=== PATIENT | female | born 1985 | race Caucasian/White ===

== ENCOUNTER 2016-12-26 23:43 | Emergency (ER) | payer MEDICAID ==
[~2016-12-26] VITALS: Ht 157.5 cm; Wt 59.9 kg
[2016-12-27] MEDS ORDERED: KETOROLAC 30 MG/1 ML IM ONE
[2016-12-27] MEDS ORDERED: KETOROLAC 30 MG/1 ML ONE (00:04)
[2016-12-27 01:44] VITALS: BP 118/80
== END 2016-12-27 01:57 | disposition home or self-care (01) ==
LOC: ED 23:59
DX: G89.11 Acute pain due to trauma (principal); Y04.0XXA Assault by unarmed brawl or fight, initial encounter; Y93.89 Activity, other specified; Y92.009 Unspecified place in unspecified non-institutional (private) residence as the place of occurrence of the external cause; Y99.9 Unspecified external cause status
CPT/HCPCS: 70100; 96372; 99284; J1885

== ENCOUNTER 2017-02-17 02:33 | Emergency (ER) | payer MEDICAID ==
[~2017-02-17] VITALS: Ht 157.5 cm; Wt 55.0 kg
[2017-02-17 02:57] VITALS: BP 132/85
[2017-02-17] MEDS ORDERED: LORazepam 1MG TABLET ONE (03:07)
[2017-02-17] MEDS ORDERED: ONDANSETRON ODT 4 MG ONE (03:08)
[2017-02-17] MEDS ORDERED: HYDROcodone/APAP 5/325 TABLET ONE (03:08)
[2017-02-17] MEDS ORDERED: LORazepam 1MG TABLET PO ONE (03:30)
[2017-02-17] MEDS ORDERED: HYDROcodone/APAP 5/325 TABLET PO ONE (03:30)
[2017-02-17] MEDS ORDERED: ONDANSETRON ODT 4 MG PO ONE (03:30)
== END 2017-02-17 04:24 | disposition home or self-care (01) ==
LOC: ED 03:15
DX: S50.01XA Contusion of right elbow, initial encounter (principal); S50.11XA Contusion of right forearm, initial encounter; S40.022A Contusion of left upper arm, initial encounter; W19.XXXA Unspecified fall, initial encounter; Y93.89 Activity, other specified; Y92.009 Unspecified place in unspecified non-institutional (private) residence as the place of occurrence of the external cause; Y99.8 Other external cause status
CPT/HCPCS: 73000; 73060; 73080; 73090; 99284; Q0162

== ENCOUNTER 2017-06-06 14:05 | Emergency (ER) | payer MEDICAID ==
[~2017-06-06] VITALS: Ht 157.5 cm; Wt 55.0 kg
[2017-06-06] MEDS ORDERED: KETOROLAC 30 MG/1 ML ONE (15:50)
[2017-06-06] MEDS ORDERED: OXYcodone/APAP 5/325MG TABLET ONE (15:50)
[2017-06-06 16:12] LABS: HCG UR LOT HCG706132
[2017-06-06 16:17] LABS: HCG UR OBC PASS
[2017-06-06 17:17] VITALS: BP 122/65
== END 2017-06-06 17:20 | disposition home or self-care (01) ==
LOC: ED 17:12
DX: M54.5 Low back pain (principal)
CPT/HCPCS: 72110; 81003; 81025; 99285

== ENCOUNTER 2017-07-24 10:44 | Emergency (ER) | payer MEDICAID ==
[~2017-07-24] VITALS: Ht 157.5 cm; Wt 60.0 kg
[2017-07-24 10:57] VITALS: BP 118/72
[2017-07-24] MEDS ORDERED: CYCL7.5T25 PO (10:59)
== END 2017-07-24 12:25 | disposition home or self-care (01) ==
LOC: ED 12:19
DX: G89.29 Other chronic pain (principal); M79.672 Pain in left foot; M72.2 Plantar fascial fibromatosis; F17.200 Nicotine dependence, unspecified, uncomplicated
CPT/HCPCS: 99284

== ENCOUNTER 2017-08-10 14:29 | Emergency (ER) | payer MEDICAID ==
[~2017-08-10] VITALS: Ht 157.5 cm; Wt 59.1 kg
[~2017-08-10 14:29] MED LIST: CYCL7.5T25 PO
[2017-08-10] MEDS ORDERED: ONDANSETRON ODT 4 MG ONE (15:44)
[2017-08-10] MEDS ORDERED: KETOROLAC 30 MG/1 ML ONE (15:44)
[2017-08-10] MEDS ORDERED: HYDROcodone/APAP 5/325 TABLET PO PRN (16:00)
[2017-08-10] MEDS ORDERED: ONDANSETRON ODT 4 MG PO ONE (16:00)
[2017-08-10] MEDS ORDERED: KETOROLAC 30 MG/1 ML IM ONE (16:00)
[2017-08-10] MEDS ORDERED: HYDROcodone/APAP 5/325 TABLET ONE (16:08)
[2017-08-10 16:17] LABS: BASOPHILS # (AUTO) 0.05 x10^3/uL (0-0.1); BASOPHILS % (AUTO) 1 % (0-1); EOSINOPHILS # (AUTO) 0.12 x10^3/uL (0-0.4); EOSINOPHILS % (AUTO) 1 % (1-7); LYMPHOCYTES # (AUTO) 2.32 x10^3/uL (1-3.4); LYMPHOCYTES % (AUTO) 21 % (22-44); MD NO; MEAN CORPUSCULAR HEMOGLOBIN 30.9 pg (27.0-34.8); MEAN CORPUSCULAR HGB CONC 34.1 g/dL (32.4-35.8); MEAN CORPUSCULAR VOLUME 90.6 fL (80-100); MEAN PLATELET VOLUME 7.4 fL (7.4-10.4); MONOCYTES # (AUTO) 0.66 x10^3/uL (0.2-0.8); MONOCYTES % (AUTO) 6 % (2-9); NEUTROPHILS # (AUTO) 7.94 x10^3/uL (1.8-6.8); NEUTROPHILS % (AUTO) 72 % (42-75); PLATELET COUNT 266 x10^3/uL (130-400); RED BLOOD COUNT 4.43 x10^6/uL (3.82-5.3); RED CELL DISTRIBUTION WIDTH 12.5 % (9.6-15.2)
[2017-08-10 16:27] LABS: ALANINE AMINOTRANSFERASE 25 U/L (12-78); ALBUMIN 3.7 g/dL (3.4-5.0); ANION GAP 9 mmol/L (5-15); CALCIUM 8.2 mg/dL (8.5-10.1); CHLORIDE 108 mmol/L (98-107); CREATININE 0.84 mg/dL (0.55-1.02)
[2017-08-10 16:31] LABS: ALKALINE PHOSPHATASE 55 U/L (45-117); BILIRUBIN,TOTAL 0.4 mg/dL (0.2-1.0); SALICYLATE LEVEL 2.1 mg/dL (2.8-20.0); TOTAL PROTEIN 7.8 g/dL (6.4-8.2)
[2017-08-10 16:32] LABS: ACETAMINOPHEN < 2 mcg/mL (10-30)
[2017-08-10 17:22] VITALS: BP 112/64
[2017-08-10 18:15] LABS: AMPHETAMINE SCREEN, URINE Negative (Negative); BARBITURATE SCREEN, URINE Negative (Negative); BENZODIAZEPINE SCREEN, URINE Negative (Negative); CANNABINOID SCREEN, URINE Negative (Negative); COCAINE SCREEN, URINE Negative (Negative); METHADONE SCREEN, URINE Negative (Negative); OPIATE SCREEN, URINE Negative (Negative)
[2017-08-10 18:27] LABS: ACETAMINOPHEN < 2 mcg/mL (10-30); SALICYLATE LEVEL 2.1 mg/dL (2.8-20.0)
[2017-08-10] MEDS ORDERED: IBUPROFEN 200 MG TABLET ONE (20:57)
[2017-08-10] MEDS ORDERED: IBUPROFEN 200 MG TABLET PO ONE (21:00)
== END 2017-08-10 22:52 | disposition home or self-care (01) ==
LOC: ED 18:37
DX: G89.11 Acute pain due to trauma (principal); M25.561 Pain in right knee; F32.9 Major depressive disorder, single episode, unspecified; F17.210 Nicotine dependence, cigarettes, uncomplicated; Z91.012 Allergy to eggs; Z79.899 Other long term (current) drug therapy; X58.XXXA Exposure to other specified factors, initial encounter; Y93.89 Activity, other specified; Y92.89 Other specified places as the place of occurrence of the external cause
CPT/HCPCS: 29505; 36415; 73564; 80053; 80307; 80329; 84703; 85025; 96372; 99285; J1885; Q0162; G0480

== ENCOUNTER 2017-11-26 16:04 | Emergency (ER) | payer MEDICAID ==
[~2017-11-26] VITALS: Ht 157.5 cm; Wt 68.0 kg
[2017-11-26 16:08] VITALS: BP 115/74
[2017-11-26] MEDS ORDERED: ALBUTEROL/IPRATROPIUM 2.5MG/0.5MG, 3 ML NPPB ONE (16:30)
[2017-11-26] MEDS ORDERED: ALBUTEROL/IPRATROPIUM 2.5MG/0.5MG, 3 ML ONE (16:31)
== END 2017-11-26 17:10 | disposition home or self-care (01) ==
LOC: ED 17:04
DX: J06.9 Acute upper respiratory infection, unspecified (principal)
CPT/HCPCS: 71046; 94640; 99284; J7620

== ENCOUNTER 2018-01-08 18:04 | Emergency (ER) | payer MEDICAID ==
[~2018-01-08] VITALS: Ht 157.5 cm; Wt 67.5 kg
[2018-01-08 18:15] VITALS: BP 127/88
[2018-01-08] MEDS ORDERED: ONDANSETRON ODT 4 MG PO ONE (18:30)
[2018-01-08] MEDS ORDERED: ONDANSETRON ODT 4 MG ONE (18:56)
[2018-01-08 19:10] LABS: BASOPHILS # (AUTO) 0.03 x10^3/uL (0-0.1); BASOPHILS % (AUTO) 0 % (0-1); EOSINOPHILS # (AUTO) 0.18 x10^3/uL (0-0.4); EOSINOPHILS % (AUTO) 2 % (1-7); LYMPHOCYTES # (AUTO) 2.38 x10^3/uL (1-3.4); LYMPHOCYTES % (AUTO) 28 % (22-44); MD NO; MEAN CORPUSCULAR HEMOGLOBIN 31.8 pg (27.0-34.8); MEAN CORPUSCULAR VOLUME 90.8 fL (80-100); MEAN PLATELET VOLUME 8.1 fL (7.4-10.4); MONOCYTES # (AUTO) 0.78 x10^3/uL (0.2-0.8); MONOCYTES % (AUTO) 9 % (2-9); NEUTROPHILS # (AUTO) 5.11 x10^3/uL (1.8-6.8); NEUTROPHILS % (AUTO) 60 % (42-75); PLATELET COUNT 274 x10^3/uL (130-400); RED BLOOD COUNT 4.46 x10^6/uL (3.82-5.3); RED CELL DISTRIBUTION WIDTH 12.2 % (9.6-15.2)
[2018-01-08 19:14] LABS: ALANINE AMINOTRANSFERASE 21 U/L (12-78); ALBUMIN 3.8 g/dL (3.4-5.0); ANION GAP 6 mmol/L (5-15); CALCIUM 8.9 mg/dL (8.5-10.1); CHLORIDE 107 mmol/L (98-107)
[2018-01-08 19:19] LABS: ALKALINE PHOSPHATASE 63 U/L (45-117); BILIRUBIN,TOTAL 0.3 mg/dL (0.2-1.0); TOTAL PROTEIN 7.7 g/dL (6.4-8.2)
[2018-01-08 19:24] LABS: MICROSCOPIC INDICATED
[2018-01-08 19:28] LABS: CULTURE INDICATED? YES
[2018-01-08 20:07] LABS: CLOSTRIDIUM DIFFICILE ANTIGEN NEGATIVE; CLOSTRIDIUM DIFFICILE TOXIN NEGATIVE (Negative)
== END 2018-01-08 20:39 ==
LOC: ED 20:00
DX: R19.7 Diarrhea, unspecified (principal); R11.2 Nausea with vomiting, unspecified; R10.12 Left upper quadrant pain
CPT/HCPCS: 36415; 80053; 81001; 83690; 84703; 85025; 87046; 87086; 87324; 87427; 89055; 99284; Q0162

== ENCOUNTER 2018-01-22 18:37 | Emergency (ER) | payer MEDICAID ==
[~2018-01-22] VITALS: Ht 157.5 cm; Wt 67.9 kg
[2018-01-22 19:21] LABS: BASOPHILS # (AUTO) 0.06 x10^3/uL (0-0.1); BASOPHILS % (AUTO) 1 % (0-1); EOSINOPHILS # (AUTO) 0.34 x10^3/uL (0-0.4); EOSINOPHILS % (AUTO) 3 % (1-7); LYMPHOCYTES # (AUTO) 2.75 x10^3/uL (1-3.4); LYMPHOCYTES % (AUTO) 24 % (22-44); MD NO; MEAN CORPUSCULAR HEMOGLOBIN 31.9 pg (27.0-34.8); MEAN CORPUSCULAR HGB CONC 35.1 g/dL (32.4-35.8); MEAN PLATELET VOLUME 8.1 fL (7.4-10.4); MONOCYTES # (AUTO) 0.61 x10^3/uL (0.2-0.8); MONOCYTES % (AUTO) 5 % (2-9); NEUTROPHILS # (AUTO) 7.94 x10^3/uL (1.8-6.8); NEUTROPHILS % (AUTO) 68 % (42-75); PLATELET COUNT 298 x10^3/uL (130-400); RED BLOOD COUNT 4.88 x10^6/uL (3.82-5.3); RED CELL DISTRIBUTION WIDTH 12.6 % (9.6-15.2)
[2018-01-22 19:28] LABS: MICROSCOPIC NOT IND
[2018-01-22 19:32] LABS: ALANINE AMINOTRANSFERASE 32 U/L (12-78); ANION GAP 6 mmol/L (5-15); CALCIUM 8.7 mg/dL (8.5-10.1); CHLORIDE 106 mmol/L (98-107); CREATININE 0.86 mg/dL (0.55-1.02)
[2018-01-22 19:32] LABS: CULTURE INDICATED? NO
[2018-01-22 19:36] LABS: ALKALINE PHOSPHATASE 72 U/L (45-117); BILIRUBIN,TOTAL 0.5 mg/dL (0.2-1.0); TOTAL PROTEIN 8.2 g/dL (6.4-8.2)
[2018-01-22 21:54] VITALS: BP 104/62
[2018-01-22] MEDS ORDERED: OMNIPAQUE 350 MG/ML, 100ML BOTTLE ONE (22:33)
== END 2018-01-22 23:27 | disposition home or self-care (01) ==
LOC: ED 21:26
DX: R10.12 Left upper quadrant pain (principal); R10.32 Left lower quadrant pain; F32.9 Major depressive disorder, single episode, unspecified
CPT/HCPCS: 36415; 74177; 80053; 81003; 83690; 84703; 85025; 86677; 99285; Q9967

== ENCOUNTER 2018-06-13 17:38 | Emergency (ER) | payer MEDICAID ==
[~2018-06-13] VITALS: Ht 157.5 cm; Wt 68.9 kg
[2018-06-13] MEDS ORDERED: RANI150T23 PO (18:17)
--- NOTE | 2018-06-13 18:24 | NUR ---
FIRST CONTACT WITH PT. PT C/O RIGHT EAR PRESSURE PAIN X 1 MONTH AND WHITE MILKY DISCHARGE FROM VAGINA X 1 WEEK. LMP 2 WEEKS AGO. DENIES PREGNACY, N/V/D AT THIS TIME. SAO2 AND BP MONITORS IN PLACE. CALL LIGHT WITHIN REACH. WILL CONTINUE TO MONITOR.
[2018-06-13 18:30] LABS: HCG UR SG 1.024 (1.003-1.030)
[2018-06-13 18:36] LABS: MICROSCOPIC INDICATED
[2018-06-13 18:57] LABS: CULTURE INDICATED? YES
--- NOTE | 2018-06-13 19:20 | NUR ---
PT RESTING IN RQUESTA. PT AOX4. RESPS EVEN AND UNLABORED. DENIES PAIN, ANY NEEDS AND CONCERNS AT THIS TIME. CALL LIGHT WITHIN REACH.
[2018-06-13 19:27] LABS: CLUE CELLS PRESENT (NONE SEEN); WET PREP WBCS MODERATE (FEW)
[2018-06-13 20:03] VITALS: BP 110/74
--- NOTE | 2018-06-13 20:05 | NUR ---
PT PROVIDED WARM BLANKET. PT AOX4. RESPS EVEN AND UNLABORED. SAO2 AND BP MONITORS IN PLACE. CALL LIGHT WITHIN REACH.
--- NOTE | 2018-06-13 20:51 | NUR ---
DC EDUCATION PROVIDED, PT DEMONSTRATES UNDERSTANDING. PT AMBULATED STEADILY TO DC WITH RN
== END 2018-06-13 20:53 | disposition home or self-care (01) ==
LOC: ED 18:34
DX: N76.0 Acute vaginitis (principal); H92.01 Otalgia, right ear; F32.9 Major depressive disorder, single episode, unspecified
CPT/HCPCS: 81001; 81025; 87086; 87210; 87491; 87591; 87808; 99283